=== PATIENT | female | born 1995 | race Caucasian/White ===

== ENCOUNTER 2023-03-31 09:27 | Outpatient (CLI) | payer BC, SELFPAY | END 2023-03-31 09:28 | disposition home or self-care (01) | PROVIDERS: Visit Provider Emergency Medicine | DX: R20.2 Paresthesia of skin (principal) | CPT/HCPCS: 82607; 84443 ==

== ENCOUNTER 2023-04-08 09:07 | Outpatient (CLI) | payer BC, SELFPAY ==
--- NOTE | 2023-04-08 10:15 | CRLHL7_ITS ---
For Patients: As a result of the Century Cures Act, medical imaging exams and procedure reports are released immediately into your electronic medical record. You may view this report before your referring provider. If you have questions, please contact your health care provider. INDICATION Headache. TECHNIQUE: Multiplanar multisequence noncontrast MR images acquired through the brain. COMPARISON: None. FINDINGS: The ventricles and sulci are within normal limits for patient age. No mass effect or midline shift. No parenchymal signal abnormalities. No diffusion restriction to suggest acute infarction. No intracranial hemorrhage or pathologic extra-axial fluid collection. The major arterial flow voids of the skullbase are preserved. The globes are symmetric. The paranasal sinuses are well aerated. The mastoid air cells are clear. IMPRESSION: Unremarkable noncontrast MRI of the brain. Dictated by Raul Garcia MD @ 04/08/2023 11:08:48 AM (Electronically Signed)
== END 2023-04-08 09:08 | disposition home or self-care (01) ==
PROVIDERS: PCP Emergency Medicine; Visit Provider Emergency Medicine
DX: R51.9 Headache, unspecified (principal)
CPT/HCPCS: 70551